=== PATIENT | female | born 1975 | race Caucasian/White ===

== ENCOUNTER 2025-08-29 11:10 | Emergency (ER) | payer OTHER, SELFPAY ==
[2025-08-29] MEDS ORDERED: levETIRAcetam 500 MG TAB ONE (11:24)
[2025-08-29] MEDS ORDERED: ONDANSETRON 4 MG (ODT) TAB ONE (11:26)
--- NOTE | 2025-08-29 11:47 | EDPHYS ---
Physician Documentation [facility] Name: Lizbeth Loyola Age: 49 yrs Sex: Female : 1975 Arrival Date: 08/29/2025 Time: 11:10 Bed DX3 Private MD: ED Physician Chao Chapman HPI: 08/29 11:43 This 49 yrs old Female presents to ER via EMS with complaints of Possible Seizure. sp3 11:43 49-year-old female with history of seizures on Keppra with last dose 4 days ago sp3 presents via EMS from local long-term. Officer states that she started having a shaking motion for about 20 seconds and then immediately came to and started speaking about how she needed to go to the emergency department. Patient denies headache, pain, shortness of breath or any other signs or symptoms including fever or trauma.. Historical: - Allergies: 11:30 No Known Allergies; hb - PMHx: 11:30 Seizure; hb - Immunization history:: Adult Immunizations up to date. - Infectious Disease History:: Denies. - Social history:: Smoking status: . ROS: 11:45 Constitutional: Negative for fever, chills, and weight loss, Eyes: Negative for injury, sp3 pain, redness, and discharge, ENT: Negative for injury, pain, and discharge, Neck: Negative for injury, pain, and swelling, Cardiovascular: Negative for chest pain, palpitations, and edema, Respiratory: Negative for shortness of breath, cough, wheezing, and pleuritic chest pain, Abdomen/GI: Negative for abdominal pain, nausea, vomiting, diarrhea, and constipation, Back: Negative for injury and pain, : Negative for injury, bleeding, discharge, and swelling, MS/Extremity: Negative for injury and deformity, Skin: Negative for injury, rash, and discoloration, Psych: Negative for depression, anxiety, suicide ideation, homicidal ideation, and hallucinations, Allergy/Immunology: Negative for hives, rash, and allergies, Endocrine: Negative for neck swelling, polydipsia, polyuria, polyphagia, and marked weight changes, 11:45 All other systems are negative, Exam: 11:45 Constitutional: This is a well developed, well nourished patient who is awake, alert, sp3 and in no acute distress. Head/Face: Normocephalic, atraumatic. Eyes: Pupils equal round and reactive to light, extra-ocular motions intact. Lids and lashes normal. Conjunctiva and sclera are non-icteric and not injected. Cornea within normal limits. Periorbital areas with no swelling, redness, or edema. ENT: Nares patent. No nasal discharge, no septal abnormalities noted. External auditory canals are clear. Oropharynx with no redness, swelling, or masses, exudates, or evidence of obstruction, uvula midline. Mucous membranes moist. Neck: Trachea midline, no thyromegaly or masses palpated, and no cervical lymphadenopathy. Supple, full range of motion without nuchal rigidity, or vertebral point tenderness. No Meningismus. Chest/axilla: Normal chest wall appearance and motion. Nontender with no deformity. No lesions are appreciated. Cardiovascular: Regular rate and rhythm with a normal S1 and S2. No gallops, murmurs, or rubs. Normal PMI, no JVD. No pulse deficits. Respiratory: Lungs have equal breath sounds bilaterally, clear to auscultation and percussion. No rales, rhonchi or wheezes noted. No increased work of breathing, no retractions or nasal flaring. Abdomen/GI: Soft, non-tender, with normal bowel sounds. No distension or tympany. No guarding or rebound. No evidence of tenderness throughout. Back: No spinal tenderness. No costovertebral tenderness. Full range of motion. Skin: Warm, dry with normal turgor. Normal color with no rashes, no lesions, and no evidence of cellulitis. MS/ Extremity: Pulses equal, no cyanosis. Neurovascular intact. Full, normal range of motion. Neuro: Awake and alert, GCS 15, oriented to person, place, time, and situation. Cranial nerves II-XII grossly intact. Motor strength 5/5 in all extremities. Sensory grossly intact. Cerebellar exam normal. Normal gait. Psych: Awake, alert, with orientation to person, place and time. Behavior, mood, and affect are within normal limits. 11:45 Neuro: Patient had pseudoseizure shaking episode that she was easily aroused from with voice and sternal rub. No actual seizure activity present., MDM: 11:19 Medical Screening Exam initiated sp3 11:45 Data reviewed: vital signs, nurses notes. ED course: Upon arrival to the ED patient had sp3 the same shaking episode as confirmed by officer. Patient was shaking purposely with her eyes closed clenched. Patient was able to be aroused and spoke when sternal rub was applied. We will give her 1000 g of Keppra and ondansetron ODT for mild nausea. She will be released back into police custody. Diagnosis is pseudoseizures. Clinically ruled out epileptic seizure, or any other critical neurological process.. Administered Medications: 11:26 Drug: Keppra PO 1000 mg PO once Route: PO; hb 11:36 Drug: Ondansetron PO 4 mg PO once Route: PO; hb 11:54 Drug: Nicoderm CQ Transdermal Patch 21 mg/24 hr 1 patches Transdermal once Route: hb Transdermal; Site: affected area; Disposition Summary: 08/29/25 11:46 Discharge Ordered Notes: Location: Home sp3 Condition: Stable sp3 Diagnosis - Pseudoseizure sp3 Followup: sp3 - With: Private Physician - When: Upon discharge from the Emergency Department - Reason: Recheck today's complaints, Continuance of care Discharge Instructions: - Discharge Summary Sheet sp3 - Non-Epileptic Seizures, Adult sp3 Forms: - Medication Reconciliation Form sp3 - Antibiotic Education sp3 - Prescription Opioid Use sp3 - Patient Portal Instructions sp3 - Leadership Thank You Letter sp3 Prescriptions: - Keppra 500 mg Oral Tablet - take 1 tablet ORAL route every 12 hours; 20 tablet; Refills: 0, Product sp3 Selection Permitted Signatures: Florecita Zeng, RN RN Chao Chapman MD MD sp3
--- NOTE | 2025-08-29 11:47 | ER ---
Nurse's Notes [facility] Name: Lizbeth Loyola Age: 49 yrs Sex: Female : 1975 Arrival Date: 08/29/2025 Time: 11:10 Bed DX3 Private MD: Diagnosis: Pseudoseizure Presentation: 08/29 11:29 Chief complaint: EMS states: Possible seizure activity for approx 30 seconds hb immediately following being served a warrant by police. No post ictal phase, no loss of urine. Hx of seisures. Coronavirus screen: At this time, the client does not indicate any symptoms associated with coronavirus-19. Ebola Screen: No symptoms or risks identified at this time. Initial Sepsis Screen: Does the patient meet any 2 criteria? No. Patient's initial sepsis screen is negative. Does the patient have a suspected source of infection? No. Patient's initial sepsis screen is negative. Risk Assessment: Do you want to hurt yourself or someone else? Patient reports no desire to harm self or others. Onset of symptoms was August 29, 2025. 11:29 Method Of Arrival: EMS: [facility] hb 11:29 Acuity: YG 4 hb Historical: - Allergies: 11:30 No Known Allergies; hb - PMHx: 11:30 Seizure; hb - Immunization history:: Adult Immunizations up to date. - Infectious Disease History:: Denies. - Social history:: Smoking status: . ED Course: 11:17 Patient arrived in ED. bd 11:19 Chao Chapman MD is Attending Physician. sp3 11:30 Triage completed. hb 11:30 Arm band placed on. hb Administered Medications: 11:26 Drug: Keppra PO 1000 mg PO once Route: PO; hb 11:36 Drug: Ondansetron PO 4 mg PO once Route: PO; hb 11:54 Drug: Nicoderm CQ Transdermal Patch 21 mg/24 hr 1 patches Transdermal once Route: hb Transdermal; Site: affected area; Outcome: 11:46 Discharge ordered by . sp3 11:54 Patient left the ED. hb Signatures: Maria Alejandra Miranda Heather, RN RN hb Chao Chapman MD MD sp3
[2025-08-29] MEDS ORDERED: NICOTINE 21 MG/PAT TD ONE (11:51)
== END 2025-08-29 11:54 | disposition home or self-care (01) ==
LOC: ER 11:10
DX: R56.9 Unspecified convulsions (principal)
CPT/HCPCS: 99283; Q0162